=== PATIENT | male | born 1955 | race American Indian/Alaskan Native ===

== ENCOUNTER 2017-04-10 10:13 | Outpatient (CLI) | payer OTHER ==
--- NOTE | 2017-04-10 11:20 | XRay Report ---
LUMBOSACRAL SPINE, 3 VIEWS: History: Back pain Findings: Normal bone mineralization. There is moderate circumferential disc spurring and facet arthropathy at all levels. No compression deformity, subluxation or bone lesion. Mild symmetric degenerative changes at the SI joints. Impression: Moderate multilevel lumbar spondylosis. No acute process detected.
--- NOTE | 2017-04-10 11:21 | XRay Report ---
CERVICAL SPINE, 3 views: History: Neck pain. Findings: There is normal height and alignment of the cervical vertebral bodies. There is mild disc space narrowing at all levels. Bridging or near bridging anterior osteophytes are identified at C4-5 and C5-6. The posterior elements are within normal limits. The dens is intact. Prevertebral soft tissues are normal. Impression: Mild to moderate cervical spondylosis as described. No acute process.
== END 2017-04-10 10:14 | disposition home or self-care (01) ==
LOC: XRAY 10:13
PROVIDERS: ATTEND Internal Medicine
DX: M47.812 Spondylosis without myelopathy or radiculopathy, cervical region (principal); M47.816 Spondylosis without myelopathy or radiculopathy, lumbar region; M12.88 Other specific arthropathies, not elsewhere classified, other specified site; M25.78 Osteophyte, vertebrae; E11.40 Type 2 diabetes mellitus with diabetic neuropathy, unspecified; M10.9 Gout, unspecified
CPT/HCPCS: 72040; 72100